=== PATIENT | female | born 1955 | race Caucasian/White ===

== ENCOUNTER → 2017-05-25 | Outpatient (CLI) | payer MEDICARE, OTHER ==
--- NOTE | 2017-05-25 15:40 | MR ---
EXAMINATION TYPE: MR chan wo con DATE OF EXAM: 05/25/2017 COMPARISON: 09/17/2015 HISTORY: Back pain TECHNIQUE: T1 and T2 axial and sagittal images of the lumbar spine are submitted. FINDINGS: There is no abnormal signal seen within the visualized spinal cord or paraspinal soft tissu es. At L1-2 there is there is hypertrophic change of the facets. No disc herniation or canal stenosis. No foraminal encroachment. At L2-3 there is mild degenerative disc disease and more moderate hypertrophic change of the facets a nd ligamentum flavum. Neural foramina are patent. No Canal stenosis. Minimal 1 mm anterior listhesis. At L3-4 there is circumferential disc bulging with more moderate facet arthropathy and ligamentum fla vum hypertrophy. No Canal stenosis. Mild right-sided foraminal encroachment secondary to greater righ t lateral disc bulging and greater right-sided facet arthropathy. At L4-5 there is moderate to severe facet arthropathy and ligament flavum hypertrophy. Circumferentia l disc bulging but no canal stenosis. Neural foramina remain patent At L5-S1 there is Moderate facet arthropathy. No disc herniation or canal stenosis. Neural foramina r emain patent with mild encroachment bilaterally. IMPRESSION: 1. Multilevel degenerative disc disease. There is multilevel facet arthropathy contributing to multil evel foraminal encroachment as discussed above. 2. No discrete herniation or canal stenosis at any of the visualized levels. EXAMINATION TYPE: MR rendon/dustin wo con DATE OF EXAM: 05/25/2017 COMPARISON: 09/17/2015 HISTORY: Pain TECHNIQUE: T1 sagittal and coronal, T2 sagittal, and gradient echo axial views of the cervical spine are submitted. FINDINGS: The cranial cervical junction is preserved. There is no abnormal signal seen within the sp inal cord or paraspinal soft tissues. At C2-3 there is no disc herniation or canal stenosis. Minimal posterior spondylosis. No foraminal en croachment. At C3-4 there is degenerative disc disease. No disc herniation. No foraminal encroachment or canal st enosis. At C4-5 there is 2 mm retrolisthesis of C4 on C5 with moderate degenerative disc disease. Broad-based disc bulging noted with uncovertebral joint hypertrophy bilaterally. Mild bilateral foraminal encroa chment. Moderate effacement of thecal sac and mild central stenosis. Loss of the normal cervical lord osis. At C5-6 there is moderate degenerative disc disease. Osteophytic spurs anteriorly noted. There is pos terior spondylosis and broad-based disc bulging. Uncovertebral joint hypertrophy greater on the right with mild right-sided foraminal encroachment. Mild effacement of thecal sac with borderline stenosi s. At C6-7 there is no disc herniation or canal stenosis. Neural foramina patent. At C7-T1 there is no disc herniation or canal stenosis. Neural foramina patent. IMPRESSION: 1. Stable MRI cervical spine demonstrating multilevel degenerative disc disease with kyphosis at C4- C5. There is a retrolisthesis of C4 on C5 by approximately 2 mm. 2. Multilevel disc bulging and hypertrophic changes resulting in mild spinal stenosis at C4-C5 and dominick rderline stenosis at C5-C6. 3. Multilevel foraminal encroachment.
== END | disposition home or self-care (01) ==
LOC: RADMRIMAIN 14:30
PROVIDERS: ATTEND Psychiatry & Neurology Neurology
DX: M48.02 Spinal stenosis, cervical region (principal); M50.221 Other cervical disc displacement at C4-C5 level; M43.12 Spondylolisthesis, cervical region; M50.321 Other cervical disc degeneration at C4-C5 level; M51.36 Other intervertebral disc degeneration, lumbar region; M46.86 Other specified inflammatory spondylopathies, lumbar region
CPT/HCPCS: 72141; 72148

== ENCOUNTER 2021-04-09 13:12 | Inpatient (IN) | payer MEDICARE, OTHER ==
[2021-04-09] MEDS ORDERED: IPRATROPIUM-ALBUTEROL 3 ML NEB INHALATION STA ×2 (13:45→17:12)
[2021-04-09] MEDS ORDERED: methylPREDNISolone SOD SUCCI 125 MG/2 ML VIAL IV STA (13:45)
--- NOTE | 2021-04-09 13:56 | ED ---
General Adult HPI - General Chief complaint: Shortness of Breath Stated complaint: SOB Time Seen by Provider: 04/09/21 13:16 Source: patient, EMS, RN notes reviewed Mode of arrival: EMS Limitations: no limitations - History of Present Illness Initial comments: Patient is a pleasant [age]-year-old female presenting to the emergency Department with difficulty in breathing. Onset of symptoms was a couple of weeks ago. Symptoms worsened the past couple of days. Patient does have cough however cough seems to is improved. No leg pain or leg swelling. No fevers. 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 - Related Data Home Medications Medication Instructions Recorded Confirmed Albuterol Inhaler [Ventolin Hfa 2 puff INHALATION RT-Q4H PRN 04/09/21 04/09/21 Inhaler] Albuterol Nebulized [Ventolin 2.5 mg INHALATION RT-QID PRN 04/09/21 04/09/21 Nebulized] Atorvastatin [Lipitor] 20 mg PO HS 04/09/21 04/09/21 Budesonide/Formoterol Fumarate 2 puff INHALATION RT-BID 04/09/21 04/09/21 [Symbicort 160-4.5 Mcg Inhaler] Dextroamphetamine/Amphetamine 20 mg PO DAILY 04/09/21 04/09/21 [Adderall Xr] Fluticasone Nasal [place] [Flonase 1 spray EA NOSTRIL DAILY 04/09/21 04/09/21 Nasal Levasy] Furosemide [Lasix] 20 mg PO DAILY PRN 04/09/21 04/09/21 Ipratropium [place] [Ipratropium 2 sprays EA NOSTRIL Q6H PRN 04/09/21 04/09/21 [place] 0.03%] Ipratropium Nebulized [Atrovent 0.5 mg INHALATION RT-QID PRN 04/09/21 04/09/21 Nebulized 0.2 MG/ML] Nystatin [Nystatin Oral Susp] 4 unit PO QID PRN 04/09/21 04/09/21 Omeprazole 40 mg PO DAILY 04/09/21 04/09/21 Ondansetron [Zofran] 4 mg PO Q8H PRN 04/09/21 04/09/21 Sertraline [Zoloft] 200 mg PO DAILY 04/09/21 04/09/21 Zolpidem [Ambien] 5 mg PO HS PRN 04/09/21 04/09/21 lamoTRIgine [LaMICtal] 100 mg PO BID 04/09/21 04/09/21 Allergies Allergy/AdvReac Type Severity Reaction Status Date / Time No Known Allergies Allergy Verified 04/09/21 15:09 Review of Systems ROS Statement: Those systems with pertinent positive or pertinent negative responses have been documented in the HPI. ROS Other: All systems not noted in ROS Statement are negative. Constitutional: Denies: fever Eyes: Denies: eye pain ENT: Denies: ear pain Respiratory: Reports: as per HPI, cough, dyspnea Cardiovascular: Denies: chest pain Endocrine: Reports: fatigue Gastrointestinal: Denies: abdominal pain Genitourinary: Denies: dysuria Musculoskeletal: Denies: back pain Skin: Denies: rash Neurological: Denies: weakness Past Medical History Past Medical History: COPD, Hyperlipidemia History of Any Multi-Drug Resistant Organisms: None Reported Past Surgical History: Section, Cholecystectomy, Orthopedic Surgery Additional Past Surgical History / Comment(s): bladder surgery, Smoking Status: Current every day smoker Past Alcohol Use History: None Reported Past Drug Use History: None Reported General Exam Limitations: no limitations General appearance: alert, in no apparent distress Head exam: Present: normocephalic Eye exam: Present: normal appearance Neck exam: Present: normal inspection Respiratory exam: Present: wheezes, decreased breath sounds Cardiovascular Exam: Present: tachycardia GI/Abdominal exam: Present: soft. Absent: tenderness Extremities exam: Present: normal inspection. Absent: pedal edema, calf tenderness Neurological exam: Present: alert Psychiatric exam: Present: normal affect, normal mood Skin exam: Present: normal color Course Vital Signs 04/09/21 04/09/21 13:18 14:11 Temperature 98.8 F Pulse Rate 112 H Respiratory 28 H 22 Rate Blood Pressure 127/84 O2 Sat by Pulse 94 L Oximetry EKG Findings - EKG Comments: EKG Findings:: Normal sinus rhythm rate 78. SC 160. QRS 90. QT 378. QTC 4:30. Normal axis. Normal QRS. No acute ST change. Medical Decision Making - Medical Decision Making Patient reevaluated without significant change. Patient updated. Dr. Perez has been paged for admission, covering for Dr. Reyna - Lab Data Result diagrams: 04/09/21 13:52 04/09/21 13:52 Lab Results 04/09/21 04/09/21 04/09/21 Range/Units 13:52 13:52 13:52 WBC 4.8 (3.8-10.6) k/uL RBC 4.69 (3.80-5.40) m/uL Hgb 14.1 (11.4-16.0) gm/dL Hct 44.0 (34.0-46.0) % MCV 93.8 (80.0-100.0) fL MCH 30.1 (25.0-35.0) pg MCHC 32.1 (31.0-37.0) g/dL RDW 14.0 (11.5-15.5) % Plt Count 252 (150-450) k/uL MPV 8.8 Neutrophils % 53 % Lymphocytes % 39 % Monocytes % 4 % Eosinophils % 1 % Basophils % 1 % Neutrophils # 2.5 (1.3-7.7) k/uL Lymphocytes # 1.8 (1.0-4.8) k/uL Monocytes # 0.2 (0-1.0) k/uL Eosinophils # 0.0 (0-0.7) k/uL Basophils # 0.0 (0-0.2) k/uL PT 9.8 (9.0-12.0) sec INR 0.9 (<1.2) APTT 25.0 (22.0-30.0) sec Sodium 139 (137-145) mmol/L Potassium 3.9 (3.5-5.1) mmol/L Chloride 101 (98-107) mmol/L Carbon Dioxide 27 (22-30) mmol/L Anion Gap 11 mmol/L BUN 15 (7-17) mg/dL Creatinine 0.84 (0.52-1.04) mg/dL Est GFR (CKD-EPI)AfAm 85 (>60 ml/min/1.73 sqM) Est GFR (CKD-EPI)NonAf 74 (>60 ml/min/1.73 sqM) Glucose 128 H (74-99) mg/dL Plasma Lactic Acid Toni (0.7-2.0) mmol/L Calcium 9.6 (8.4-10.2) mg/dL Total Bilirubin 0.3 (0.2-1.3) mg/dL AST 24 (14-36) U/L ALT 13 (4-34) U/L Alkaline Phosphatase 98 (38-126) U/L Troponin I (0.000-0.034) ng/mL Total Protein 6.5 (6.3-8.2) g/dL Albumin 3.8 (3.5-5.0) g/dL Coronavirus (PCR) (Not Detectd) 04/09/21 04/09/21 04/09/21 Range/Units 13:52 13:52 13:52 WBC (3.8-10.6) k/uL RBC (3.80-5.40) m/uL Hgb (11.4-16.0) gm/dL Hct (34.0-46.0) % MCV (80.0-100.0) fL MCH (25.0-35.0) pg MCHC (31.0-37.0) g/dL RDW (11.5-15.5) % Plt Count (150-450) k/uL MPV Neutrophils % % Lymphocytes % % Monocytes % % Eosinophils % % Basophils % % Neutrophils # (1.3-7.7) k/uL Lymphocytes # (1.0-4.8) k/uL Monocytes # (0-1.0) k/uL Eosinophils # (0-0.7) k/uL Basophils # (0-0.2) k/uL PT (9.0-12.0) sec INR (<1.2) APTT (22.0-30.0) sec Sodium (137-145) mmol/L Potassium (3.5-5.1) mmol/L Chloride (98-107) mmol/L Carbon Dioxide (22-30) mmol/L Anion Gap mmol/L BUN (7-17) mg/dL Creatinine (0.52-1.04) mg/dL Est GFR (CKD-EPI)AfAm (>60 ml/min/1.73 sqM) Est GFR (CKD-EPI)NonAf (>60 ml/min/1.73 sqM) Glucose (74-99) mg/dL Plasma Lactic Acid Toni 1.6 (0.7-2.0) mmol/L Calcium (8.4-10.2) mg/dL Total Bilirubin (0.2-1.3) mg/dL AST (14-36) U/L ALT (4-34) U/L Alkaline Phosphatase (38-126) U/L Troponin I <0.012 (0.000-0.034) ng/mL Total Protein (6.3-8.2) g/dL Albumin (3.5-5.0) g/dL Coronavirus (PCR) Not Detected (Not Detectd) - Radiology Data Radiology results: image reviewed (Chest x-ray shows COPD changes) Disposition Clinical Impression: Acute exacerbation of chronic obstructive pulmonary disease Disposition: ADMITTED IP TO THIS HOSP Is patient prescribed a controlled substance at d/c from ED?: No Referrals: Curtis Reyna MD [Primary Care Provider] - 1-2 days Decision Time: 15:39
[2021-04-09 14:30] LABS: Albumin 3.8 g/dL (3.5-5.0); Calcium 9.6 mg/dL (8.4-10.2); Potassium 3.9 mmol/L (3.5-5.1); Total Bilirubin 0.3 mg/dL (0.2-1.3); Total Protein 6.5 g/dL (6.3-8.2)
[2021-04-09 14:31] LABS: Basophils % (A) 1 %; Eosinophils % (A) 1 %; HGB 14.1 gm/dL (11.4-16.0); Lymphocytes # (A) 1.8 k/uL (1.0-4.8); Lymphocytes % (A) 39 %; MCH 30.1 pg (25.0-35.0); MCHC 32.1 g/dL (31.0-37.0); MCV 93.8 fL (80.0-100.0); Mean Platelet Volume 8.8; Monocytes # (A) 0.2 k/uL (0-1.0); Monocytes % (A) 4 %; Neutrophils # (A) 2.5 k/uL (1.3-7.7); Neutrophils % (A) 53 %; Platelet Count 252 k/uL (150-450); RBC 4.69 m/uL (3.80-5.40); WBC 4.8 k/uL (3.8-10.6)
[2021-04-09 14:51] LABS: INR 0.9 (<1.2); Prothrombin Time 9.8 sec (9.0-12.0)
--- NOTE | 2021-04-09 14:52 | XR ---
EXAMINATION TYPE: XR chest 2V DATE OF EXAM: 04/09/2021 COMPARISON: NONE HISTORY: Short of breath TECHNIQUE: 2 views FINDINGS: There is mild pulmonary hyperinflation. Heart size is normal. There are no hilar masses. Sarai ngs are clear of infiltrate. Bony thorax is intact IMPRESSION: There is probably some COPD. No acute lung disease.
[2021-04-09] MEDS ORDERED: IPRATROPIUM-ALBUTEROL 3 ML NEB INHALATION PRN (15:39)
[2021-04-09] MEDS: IPRATROPIUM-ALBUTEROL 3 ML NEB INHALATION SCH ×2 (18:04→19:51)
[2021-04-09] MEDS: methylPREDNISolone SOD SUCCI 125 MG/2 ML VIAL IV SCH (18:04)
[2021-04-09] MEDS ORDERED: FUROSEMIDE 20 MG TAB PO PRN (21:22)
[2021-04-09] MEDS ORDERED: IPRATROPIUM BROMIDE 0.06% NASAL SPRAY (15 ML) EA NOSTRIL PRN (21:22)
[2021-04-09] MEDS ORDERED: NYSTATIN 100,000 UNIT/ML SUSP 500,000 UNIT/5 ML CUP PO PRN (21:22)
[2021-04-09 21:34] LABS: Glucose,Whole Blood 209 mg/dL (75-99)
[2021-04-09] MEDS: lamoTRIgine 100 MG TAB PO SCH (21:55)
[2021-04-09] MEDS: ATORVASTATIN 20 MG TAB PO SCH (21:55)
[2021-04-09] MEDS: ZOLPIDEM 5 MG TAB PO PRN (21:55)
[2021-04-10] MEDS: methylPREDNISolone SOD SUCCI 125 MG/2 ML VIAL IV SCH ×5 (00:11→23:15)
[2021-04-10 07:34] LABS: Glucose,Whole Blood 126 mg/dL (75-99)
[2021-04-10] MEDS ORDERED: SYMBICORT 160-4.5 MCG INHALER INHALATION SCH (08:00)
[2021-04-10] MEDS: lamoTRIgine 100 MG TAB PO SCH ×2 (08:49→20:45)
[2021-04-10] MEDS: SERTRALINE 100 MG TAB PO SCH (08:49)
[2021-04-10] MEDS: PANTOPRAZOLE 40 MG TABLET PO SCH (08:49)
[2021-04-10] MEDS: INSULIN ASPART (NovoLOG) 100 UNIT/ML VIAL SQ SCH ×4 (08:49→20:45)
[2021-04-10] MEDS: ONDANSETRON 4 MG TAB PO PRN (09:16)
[2021-04-10] MEDS: IPRATROPIUM-ALBUTEROL 3 ML NEB INHALATION SCH ×5 (09:19→21:13)
[2021-04-10] MEDS: FLUTICASONE 50MCG/SPRAY NASAL 16GM EA NOSTRIL SCH (10:32)
[2021-04-10] MEDS: DEXTROAMPHETAMINE PO SCH (11:54)
[2021-04-10] MEDS: AMPHETAMINE PO SCH (11:54)
[2021-04-10 12:48] LABS: Glucose,Whole Blood 140 mg/dL (75-99)
[2021-04-10] MEDS: DOXYCYCLINE 100 MG CAP PO SCH ×2 (16:20→20:45)
[2021-04-10 17:12] LABS: Glucose,Whole Blood 148 mg/dL (75-99)
--- NOTE | 2021-04-10 17:55 | P.HPIM ---
History of Present Illness H&P Date: 04/10/21 Chief Complaint: Short of breath This is a pleasant 65-year-old patient of Dr. Curtis Reyna. Chronic stable medical conditions include insomnia, depression, GERD, ADHD, hyperlipidemia, urinary incontinence, osteoarthritis of the hips and knees. Patient stopped smoking 2 months ago. Has been progressively getting short of breath for a while now more so in the last 2 weeks. Excessive amount of wheezing. Has a cardiac cough mainly white and creamish sputum production. Denies any fever and chills. Poor appetite. Patient did not get the COVID vaccine. Tired rundown. Review of systems: GEN.: Tired decreased appetite EYES: None HEENT: None NECK: None RESPIRATORY: As above CARDIOVASCULAR: None GASTROINTESTINAL: None GENITOURINARY: Urinary incontinence MUSCULOSKELETAL: Joint pains LYMPHATICS: None HEMATOLOGICAL: None PSYCHIATRY: None NEUROLOGICAL: None Past medical history to include: Insomnia, depression, GERD, ADHD, hyperlipidemia, urinary incontinence, osteoarthritis Social history: Lives alone. Smoked a pack a day for close to 46 years stopped 2 months ago. No alcohol Family history: Reviewed, noncontributory to presentation Physical examination: VITAL SIGNS: 98.8, 112, 28, 127/84, 94% on 5 L GENERAL: BMI 26.8, sitting up in bed, short of breath. EYES: Pupils equal. Conjunctiva normal. HEENT: External appearance of nose and ears normal, oral cavity grossly normal. NECK: JVD not raised; masses not palpable. HEART: First and second heart sounds are normal; no edema. LUNGS: Respiratory rate increased, diminished breath sounds prolonged expiration and wheezing. ABDOMEN: Soft, nontender, liver spleen not palpable, no masses palpable. PSYCH: Alert and oriented x3; mood and affect anxiousl. MUSCULAR skeletal: Evidence of OA multiple joints NEUROLOGICAL: Cranial nerves grossly intact; no facial asymmetry, power and sensation grossly intact. LYMPHATICS: No lymph nodes palpable in the axilla and neck INVESTIGATIONS, reviewed in the clinical context: White count 4.8 hemoglobin 14.1 platelets 252 potassium 3.9 BUN 15 creatinine 0.84 Coronavirus [PCR]: Not detected EKG tracing personally reviewed by me-no sinus rhythm rate 73 Chest x-ray film personally reviewed by me-hyperinflated. Tubular lungs. Prominent pulmonary artery Assessment and plan: -Acute severe COPD exacerbation in a recent smoker DuoNeb every 4, nebulized Pulmicort and Perforomist, IV Solu-Medrol -Acute tracheobronchitis Doxycycline 100 mg twice a day -Acute hypoxic respiratory failure from COPD Oxygen 5 L -Chronic insomnia Ambien 5 mg by mouth daily at bedtime when necessary -Anxiety depression Zoloft 100 mg a day -GERD On results 40 mg a day -ADHD Adderall 20 mg a day -Hyperlipidemia Lipitor 20 mg daily at bedtime DuoNeb, nebulized Pulmicort Perforomist, IV Solu-Medrol. Subcu Lovenox. Resume home medications. Care was discussed with the patient. Questions answered. Given the complexity and severity of patient's condition expect the patient to be in the hospital at least for 2 overnights Past Medical History Past Medical History: COPD, Hyperlipidemia History of Any Multi-Drug Resistant Organisms: None Reported Past Surgical History: Section, Cholecystectomy, Orthopedic Surgery Additional Past Surgical History / Comment(s): bladder surgery, carpal tunnel sx; right rotator surgery Past Anesthesia/Blood Transfusion Reactions: No Reported Reaction Past Psychological History: ADD/ADHD, Anxiety, Depression, PTSD Smoking Status: Former smoker Past Alcohol Use History: None Reported Past Drug Use History: Marijuana Medications and Allergies Home Medications Medication Instructions Recorded Confirmed Type Albuterol Inhaler [Ventolin Hfa 2 puff INHALATION RT-Q4H PRN 04/09/21 04/09/21 History Inhaler] Albuterol Nebulized [Ventolin 2.5 mg INHALATION RT-QID PRN 04/09/21 04/09/21 History Nebulized] Atorvastatin [Lipitor] 20 mg PO HS 04/09/21 04/09/21 History Budesonide/Formoterol Fumarate 2 puff INHALATION RT-BID 04/09/21 04/09/21 History [Symbicort 160-4.5 Mcg Inhaler] Dextroamphetamine/Amphetamine 20 mg PO DAILY 04/09/21 04/09/21 History [Adderall Xr] Fluticasone Nasal [place] [Flonase 1 spray EA NOSTRIL DAILY 04/09/21 04/09/21 History Nasal [place]] Furosemide [Lasix] 20 mg PO DAILY PRN 04/09/21 04/09/21 History Ipratropium [place] [Ipratropium 2 sprays EA NOSTRIL Q6H PRN 04/09/21 04/09/21 History [place] 0.03%] Ipratropium Nebulized [Atrovent 0.5 mg INHALATION RT-QID PRN 04/09/21 04/09/21 History Nebulized 0.2 MG/ML] Nystatin [Nystatin Oral Susp] 4 unit PO QID PRN 04/09/21 04/09/21 History Omeprazole 40 mg PO DAILY 04/09/21 04/09/21 History Ondansetron [Zofran] 4 mg PO Q8H PRN 04/09/21 04/09/21 History Sertraline [Zoloft] 200 mg PO DAILY 04/09/21 04/09/21 History Zolpidem [Ambien] 5 mg PO HS PRN 04/09/21 04/09/21 History lamoTRIgine [LaMICtal] 100 mg PO BID 04/09/21 04/09/21 History Allergies Allergy/AdvReac Type Severity Reaction Status Date / Time No Known Allergies Allergy Verified 04/09/21 15:09 Physical Exam Vitals: Vital Signs Temp Pulse Pulse Resp BP BP Pulse Ox 04/10/21 12:34 92 04/10/21 12:22 91 04/10/21 09:32 95 04/10/21 09:19 95 98 04/10/21 04:30 98.4 F 80 20 118/73 98 04/09/21 21:30 97.9 F 99 20 97/52 96 04/09/21 19:51 100 04/09/21 18:12 97.9 F 78 19 104/57 95 04/09/21 17:20 106 H 04/09/21 17:11 106 H 04/09/21 14:11 22 04/09/21 13:18 98.8 F 112 H 28 H 127/84 94 L Intake and Output 04/09/21 04/10/21 04/10/21 22:59 06:59 14:59 Intake Total 100 300 Balance 100 300 Intake: Oral 100 300 Other: Voiding Method Bedside Commode # Voids 1 Weight 73 kg Results CBC & Chem 7: 04/09/21 13:52 04/09/21 13:52 Labs: Abnormal Lab Results - Last 24 Hours (Table) 04/09/21 04/09/21 04/10/21 Range/Units 13:52 21:33 07:32 Glucose 128 H (74-99) mg/dL POC Glucose (mg/dL) 209 H 126 H (75-99) mg/dL Thrombosis Risk Factor Assmnt - Choose All That Apply Any of the Below Risk Factors Present?: Yes Each Factor Represents 1 point: Abnormal pulmonary function (COPD), Obesity (BMI >25) Other Risk Factors: Yes Each Risk Factor Represents 2 Points: Age 61-74 years Other congenital or acquired thrombophilia - If yes, enter type in comment: No Thrombosis Risk Factor Assessment Total Risk Factor Score: 4 Thrombosis Risk Factor Assessment Level: Moderate Risk
[2021-04-10] MEDS ORDERED: LORazepam 0.5 MG TAB PO PRN (17:56)
[2021-04-10] MEDS ORDERED: CALCIUM CARBONATE 500 MG CHEWABLE PO PRN (17:56)
[2021-04-10] MEDS ORDERED: ACETAMINOPHEN TAB 325 MG TAB PO PRN (17:56)
[2021-04-10] MEDS ORDERED: LACTULOSE 20 GM/30 ML CUP PO PRN (17:56)
[2021-04-10] MEDS ORDERED: ONDANSETRON 4 MG/2 ML VIAL IVP PRN (17:56)
[2021-04-10] MEDS ORDERED: NALOXONE 0.4 MG/ML 1 ML VIAL IV PRN (17:56)
[2021-04-10] MEDS: ENOXAPARIN 40 MG/0.4 ML SYRINGE SQ SCH (18:56)
[2021-04-10 20:19] LABS: Glucose,Whole Blood 183 mg/dL (75-99)
[2021-04-10] MEDS: ATORVASTATIN 20 MG TAB PO SCH (20:45)
[2021-04-10] MEDS: BUDESONIDE 1 MG/2 ML NEBU INHALATION SCH (21:13)
[2021-04-10] MEDS: FORMOTEROL FUMARATE 20 MCG/2 ML NEBU INHALATION SCH (21:13)
[2021-04-11] MEDS: IPRATROPIUM-ALBUTEROL 3 ML NEB INHALATION SCH ×6 (01:36→20:30)
[2021-04-11] MEDS: methylPREDNISolone SOD SUCCI 125 MG/2 ML VIAL IV SCH (05:42)
[2021-04-11 07:25] LABS: Glucose,Whole Blood 120 mg/dL (75-99)
[2021-04-11] MEDS: INSULIN ASPART (NovoLOG) 100 UNIT/ML VIAL SQ SCH ×4 (07:35→20:04)
[2021-04-11] MEDS: DEXTROAMPHETAMINE PO SCH (07:50)
[2021-04-11] MEDS: AMPHETAMINE PO SCH (07:50)
[2021-04-11] MEDS: FLUTICASONE 50MCG/SPRAY NASAL 16GM EA NOSTRIL SCH (07:56)
[2021-04-11] MEDS: SERTRALINE 100 MG TAB PO SCH (07:57)
[2021-04-11] MEDS: lamoTRIgine 100 MG TAB PO SCH ×2 (07:57→21:06)
[2021-04-11] MEDS: PANTOPRAZOLE 40 MG TABLET PO SCH (07:57)
[2021-04-11] MEDS: DOXYCYCLINE 100 MG CAP PO SCH ×2 (07:57→21:06)
[2021-04-11] MEDS: ENOXAPARIN 40 MG/0.4 ML SYRINGE SQ SCH (07:57)
[2021-04-11] MEDS: ONDANSETRON 4 MG TAB PO PRN (08:04)
[2021-04-11] MEDS: BUDESONIDE 1 MG/2 ML NEBU INHALATION SCH ×2 (08:45→20:30)
[2021-04-11] MEDS: FORMOTEROL FUMARATE 20 MCG/2 ML NEBU INHALATION SCH ×2 (08:45→20:30)
--- NOTE | 2021-04-11 11:32 | ECHOF ---
Referral Reason:Suspect secondary pulmonary hypertension MEASUREMENTS -------- HEIGHT: 165.1 cm WEIGHT: 72.6 kg BP: 104/60 RVIDd: 3.5 cm (< 3.3) IVSd: 0.8 cm (0.6 - 1.1) LVIDd: 3.8 cm (3.9 - 5.3) LVPWd: 1.1 cm (0.6 - 1.1) IVSs: 1.4 cm LVIDs: 2.2 cm LVPWs: 1.3 cm LAESV Index (A-L): 21.48 ml/m Ao Diam: 3.0 cm (2.0 - 3.7) AV Cusp: 1.9 cm (1.5 - 2.6) LA Diam: 3.6 cm (2.7 - 3.8) MV EXCURSION: 16.865 mm (> 18.000) MV EF SLOPE: 55 mm/s (70 - 150) EPSS: 0.4 cm MV E Js: 0.89 m/s MV DecT: 264 ms MV A Js: 0.87 m/s MV E/A Ratio: 1.02 TAPSE: 23.51 mm FINDINGS -------- Sinus rhythm. This was a technically adequate study. The left ventricular size is normal. Left ventricular wall thickness is normal. Overall left vent ricular systolic function is normal with, an EF between 55 - 60 %. The right ventricle is moderately enlarged. Normal LA size by volume 22+/-6 ml/m2. The right atrial size is normal. Interatrial and interventricular septum intact. There is no evidence of aortic regurgitation. There is no evidence of aortic stenosis. No mitral regurgitation. Mild tricuspid regurgitation present. There is no evidence of pulmonary hypertension. The right v entricular systolic pressure, as measured by Doppler, is {RVSP}. There is no pulmonic regurgitation present. The aortic root size is normal. IVC Not well visulized. There is no pericardial effusion. CONCLUSIONS -------- 1. The left ventricular size is normal. 2. Left ventricular wall thickness is normal. 3. Overall left ventricular systolic function is normal with, an EF between 55 - 60 %. 4. The right ventricle is moderately enlarged. 5. Mild tricuspid regurgitation present. POWER SWITCHBOARD OPERATOR: Alexus Hairston [facility]
[2021-04-11] MEDS: guaiFENesin 600 MG TABLET.ER PO SCH ×3 (12:03→21:06)
[2021-04-11 12:07] LABS: Glucose,Whole Blood 125 mg/dL (75-99)
[2021-04-11] MEDS: methylPREDNISolone SOD SUCCI 40 MG/ML 1 ML VIAL IV SCH ×2 (13:25→21:07)
[2021-04-11 17:29] LABS: Glucose,Whole Blood 141 mg/dL (75-99)
--- NOTE | 2021-04-11 18:04 | P.PN ---
Progress Note - Text Progress Note Date: 04/11/21 Chief Complaint: Short of breath This is a pleasant 65-year-old patient of Dr. Curtis Reyna. Chronic stable medical conditions include insomnia, depression, GERD, ADHD, hyperlipidemia, urinary incontinence, osteoarthritis of the hips and knees. Patient stopped smoking 2 months ago. Has been progressively getting short of breath for a while now more so in the last 2 weeks. Excessive amount of wheezing. Has a cardiac cough mainly white and creamish sputum production. Denies any fever and chills. Poor appetite. Patient did not get the COVID vaccine. Tired rundown. Admitted with acute COPD exacerbation, acute hypoxic respiratory failure, acute tracheal bronchitis. Started on nebulized bronchodilators, steroids, doxycycline oxygen 5 L. April 11: Short of breath. Cough. Wheezing. She did improvement. Intake improving. Oral intake about 50%. Review of systems: Was done for constitutional, cardiovascular, GI, pulmonary. relevant finding as above Active Medications Acetaminophen (Acetaminophen Tab 325 Mg Tab) 650 mg PO Q6HR PRN PRN Reason: Mild Pain or Fever > 100.5 Albuterol/Ipratropium (Ipratropium-Albuterol 3 Ml Neb) 3 ml INHALATION RT-Q4H PRN PRN Reason: Shortness Of Breath Or Wheezing Albuterol/Ipratropium (Ipratropium-Albuterol 3 Ml Neb) 3 ml INHALATION RT-Q4H [facility] Last Admin: 04/11/21 16:25 Dose: Not Given Documented by: Atorvastatin Calcium (Atorvastatin 20 Mg Tab) 20 mg PO HS [facility] Last Admin: 04/10/21 20:45 Dose: 20 mg Documented by: Budesonide (Budesonide 1 Mg/2 Ml Nebu) 1 mg INHALATION RT-BID [facility] Last Admin: 04/11/21 08:45 Dose: 1 mg Documented by: Calcium Carbonate/Glycine (Calcium Carbonate 500 Mg Chewable) 1,000 mg PO Q4HR PRN PRN Reason: Dyspepsia Doxycycline Monohydrate (Doxycycline 100 Mg Cap) 100 mg PO BID [facility] Last Admin: 04/11/21 07:57 Dose: 100 mg Documented by: Enoxaparin Sodium (Enoxaparin 40 Mg/0.4 Ml Syringe) 40 mg SQ DAILY [facility] Last Admin: 04/11/21 07:57 Dose: 40 mg Documented by: Fluticasone Propionate (Fluticasone 50mcg/[place] Nasal 16gm) 1 spray EA NOSTRIL DAILY [facility] Last Admin: 04/11/21 07:56 Dose: 1 spray Documented by: Formoterol Fumarate (Formoterol Fumarate 20 Mcg/2 Ml Nebu) 20 mcg INHALATION RT-BID [facility] Last Admin: 04/11/21 08:45 Dose: 20 mcg Documented by: Furosemide (Furosemide 20 Mg Tab) 20 mg PO DAILY PRN PRN Reason: Edema Guaifenesin (Guaifenesin 600 Mg Tablet.Er) 600 mg PO QID [facility] Last Admin: 04/11/21 17:38 Dose: 600 mg Documented by: Insulin Aspart (Insulin Aspart (Novolog) 100 Unit/Ml Vial) 0 unit SQ ACHS [facility]; Protocol Last Admin: 04/11/21 17:37 Dose: Not Given Documented by: Ipratropium [place] (Ipratropium [place] 0.06% Nasal [place] (15 Ml)) 1 spray EA NOSTRIL Q6H PRN PRN Reason: Congestion Lactulose (Lactulose 20 Gm/30 Ml Cup) 20 gm PO DAILY PRN PRN Reason: Constipation Lamotrigine (Lamotrigine 100 Mg Tab) 100 mg PO BID [facility] Last Admin: 04/11/21 07:57 Dose: 100 mg Documented by: Lorazepam (Lorazepam 0.5 Mg Tab) 0.5 mg PO Q6HR PRN PRN Reason: Anxiety Methylprednisolone Sodium Succinate (Methylprednisolone Sod Succi 40 Mg/Ml 1 Ml Vial) 40 mg IV Q8H [facility] Last Admin: 04/11/21 13:25 Dose: 40 mg Documented by: Naloxone HCl (Naloxone 0.4 Mg/Ml 1 Ml Vial) 0.2 mg IV Q2M PRN PRN Reason: Opioid Reversal Non-Formulary Medication (Dextroamphetamine/Amphetamine [Adderall Xr]) 20 mg PO DAILY [facility] Last Admin: 04/11/21 07:50 Dose: Not Given Documented by: Nystatin (Nystatin 100,000 Unit/Ml Susp 500,000 Unit/5 Ml Cup) 400,000 unit PO QID PRN PRN Reason: YEAST INFECTION Ondansetron HCl (Ondansetron 4 Mg Tab) 4 mg PO Q8H PRN PRN Reason: Nausea Last Admin: 04/11/21 08:04 Dose: 4 mg Documented by: Ondansetron HCl (Ondansetron 4 Mg/2 Ml Vial) 4 mg IVP Q8HR PRN PRN Reason: Nausea And Vomiting Pantoprazole Sodium (Pantoprazole 40 Mg Tablet) 40 mg PO AC-BRKFST [facility] Last Admin: 04/11/21 07:57 Dose: 40 mg Documented by: Sertraline HCl (Sertraline 100 Mg Tab) 200 mg PO DAILY [facility] Last Admin: 04/11/21 07:57 Dose: 200 mg Documented by: Zolpidem Tartrate (Zolpidem 5 Mg Tab) 5 mg PO HS PRN PRN Reason: Insomnia Last Admin: 04/09/21 21:55 Dose: 5 mg Documented by: Past medical history to include: Insomnia, depression, GERD, ADHD, hyperlipidemia, urinary incontinence, osteoarthritis Social history: Lives alone. Smoked a pack a day for close to 46 years stopped 2 months ago. No alcohol Family history: Reviewed, noncontributory to presentation Physical examination: VITAL SIGNS: 98.2, 72, 18, 104/60, 93% on 4 L GENERAL: sitting up in bed, short of breath. EYES: Pupils equal. Conjunctiva normal. NECK: JVD not raised; masses not palpable. HEART: First and second heart sounds are normal; no edema. LUNGS: Respiratory rate increased, diminished breath sounds prolonged expiration and wheezing. ABDOMEN: Soft, nontender, liver spleen not palpable, no masses palpable. PSYCH: Alert and oriented x3; mood and affect anxious. MUSCULAR skeletal: Evidence of OA multiple joints INVESTIGATIONS, reviewed in the clinical context: White count 4.8 hemoglobin 14.1 platelets 252 potassium 3.9 BUN 15 creatinine 0.84 Coronavirus [PCR]: Not detected EKG tracing personally reviewed by me-no sinus rhythm rate 73 Chest x-ray film personally reviewed by me-hyperinflated. Tubular lungs. Prominent pulmonary artery Assessment and plan: -Acute severe COPD exacerbation in a recent smoker: Slow to respond DuoNeb every 4, nebulized Pulmicort and Perforomist, IV Solu-Medrol -Acute tracheobronchitis Doxycycline 100 mg twice a day -Acute hypoxic respiratory failure from COPD: Slow to respond Oxygen 3 L -Chronic insomnia Ambien 5 mg by mouth daily at bedtime when necessary -Anxiety depression Zoloft 100 mg a day -GERD On results 40 mg a day -ADHD Adderall 20 mg a day -Hyperlipidemia Lipitor 20 mg daily at bedtime DuoNeb, nebulized Pulmicort Perforomist, IV Solu-Medrol. Subcu Lovenox. . Care was discussed with the patient. Mucinex added. Encouraged to be out of bed.
[2021-04-11 19:56] LABS: Glucose,Whole Blood 122 mg/dL (75-99)
[2021-04-11] MEDS: ATORVASTATIN 20 MG TAB PO SCH (21:06)
[2021-04-11] MEDS: ZOLPIDEM 5 MG TAB PO PRN (21:12)
[2021-04-12] MEDS: IPRATROPIUM-ALBUTEROL 3 ML NEB INHALATION SCH ×7 (00:25→23:03)
[2021-04-12] MEDS: methylPREDNISolone SOD SUCCI 40 MG/ML 1 ML VIAL IV SCH ×3 (05:01→22:23)
[2021-04-12] MEDS: FORMOTEROL FUMARATE 20 MCG/2 ML NEBU INHALATION SCH ×2 (07:35→19:54)
[2021-04-12] MEDS: BUDESONIDE 1 MG/2 ML NEBU INHALATION SCH ×2 (07:35→19:51)
[2021-04-12 07:38] LABS: Glucose,Whole Blood 114 mg/dL (75-99)
[2021-04-12] MEDS: FLUTICASONE 50MCG/SPRAY NASAL 16GM EA NOSTRIL SCH (08:51)
[2021-04-12] MEDS: ENOXAPARIN 40 MG/0.4 ML SYRINGE SQ SCH (08:51)
[2021-04-12] MEDS: SERTRALINE 100 MG TAB PO SCH (08:52)
[2021-04-12] MEDS: PANTOPRAZOLE 40 MG TABLET PO SCH (08:52)
[2021-04-12] MEDS: lamoTRIgine 100 MG TAB PO SCH ×2 (08:52→22:22)
[2021-04-12] MEDS: guaiFENesin 600 MG TABLET.ER PO SCH ×4 (08:52→22:22)
[2021-04-12] MEDS: INSULIN ASPART (NovoLOG) 100 UNIT/ML VIAL SQ SCH ×4 (08:55→22:23)
[2021-04-12] MEDS: AMPHETAMINE PO SCH (08:55)
[2021-04-12] MEDS: DEXTROAMPHETAMINE PO SCH (08:55)
[2021-04-12] MEDS: DOXYCYCLINE 100 MG CAP PO SCH ×2 (10:04→22:22)
[2021-04-12 12:47] LABS: Glucose,Whole Blood 108 mg/dL (75-99)
[2021-04-12 17:57] LABS: Glucose,Whole Blood 130 mg/dL (75-99)
--- NOTE | 2021-04-12 19:44 | P.PN ---
Progress Note - Text Progress Note Date: 04/12/21 Chief Complaint: Short of breath This is a pleasant 65-year-old patient of Dr. Curtis Reyna. Chronic stable medical conditions include insomnia, depression, GERD, ADHD, hyperlipidemia, urinary incontinence, osteoarthritis of the hips and knees. Patient stopped smoking 2 months ago. Has been progressively getting short of breath for a while now more so in the last 2 weeks. Excessive amount of wheezing. Has a cardiac cough mainly white and creamish sputum production. Denies any fever and chills. Poor appetite. Patient did not get the COVID vaccine. Tired rundown. Admitted with acute COPD exacerbation, acute hypoxic respiratory failure, acute tracheal bronchitis. Started on nebulized bronchodilators, steroids, doxycycline oxygen 5 L. April 11: Short of breath. Cough. Wheezing. She did improvement. Intake improving. Oral intake about 50%. April 12: Still short of breath and some wheezing some cough. Tired. Eating better. Have the patient set up in a chair. Increase activity. Review of systems: Was done for constitutional, cardiovascular, GI, pulmonary. relevant finding as above Active Medications Acetaminophen (Acetaminophen Tab 325 Mg Tab) 650 mg PO Q6HR PRN PRN Reason: Mild Pain or Fever > 100.5 Albuterol/Ipratropium (Ipratropium-Albuterol 3 Ml Neb) 3 ml INHALATION RT-Q4H PRN PRN Reason: Shortness Of Breath Or Wheezing Albuterol/Ipratropium (Ipratropium-Albuterol 3 Ml Neb) 3 ml INHALATION RT-Q4H [facility] Last Admin: 04/12/21 15:50 Dose: 3 ml Documented by: Atorvastatin Calcium (Atorvastatin 20 Mg Tab) 20 mg PO HS [facility] Last Admin: 04/11/21 21:06 Dose: 20 mg Documented by: Budesonide (Budesonide 1 Mg/2 Ml Nebu) 1 mg INHALATION RT-BID [facility] Last Admin: 04/12/21 07:35 Dose: 1 mg Documented by: Calcium Carbonate/Glycine (Calcium Carbonate 500 Mg Chewable) 1,000 mg PO Q4HR PRN PRN Reason: Dyspepsia Doxycycline Monohydrate (Doxycycline 100 Mg Cap) 100 mg PO BID [facility] Last Admin: 04/12/21 10:04 Dose: 100 mg Documented by: Enoxaparin Sodium (Enoxaparin 40 Mg/0.4 Ml Syringe) 40 mg SQ DAILY [facility] Last Admin: 04/12/21 08:51 Dose: 40 mg Documented by: Fluticasone Propionate (Fluticasone 50mcg/[place] Nasal 16gm) 1 spray EA NOSTRIL DAILY [facility] Last Admin: 04/12/21 08:51 Dose: 1 spray Documented by: Formoterol Fumarate (Formoterol Fumarate 20 Mcg/2 Ml Nebu) 20 mcg INHALATION RT-BID [facility] Last Admin: 04/12/21 07:35 Dose: 20 mcg Documented by: Furosemide (Furosemide 20 Mg Tab) 20 mg PO DAILY PRN PRN Reason: Edema Last Admin: 04/12/21 08:52 Dose: 20 mg Documented by: Guaifenesin (Guaifenesin 600 Mg Tablet.Er) 600 mg PO QID [facility] Last Admin: 04/12/21 17:05 Dose: 600 mg Documented by: Insulin Aspart (Insulin Aspart (Novolog) 100 Unit/Ml Vial) 0 unit SQ [facility]; Protocol Last Admin: 04/12/21 17:59 Dose: Not Given Documented by: Ipratropium [place] (Ipratropium [place] 0.06% Nasal [place] (15 Ml)) 1 spray EA NOSTRIL Q6H PRN PRN Reason: Congestion Lactulose (Lactulose 20 Gm/30 Ml Cup) 20 gm PO DAILY PRN PRN Reason: Constipation Lamotrigine (Lamotrigine 100 Mg Tab) 100 mg PO BID [facility] Last Admin: 04/12/21 08:52 Dose: 100 mg Documented by: Lorazepam (Lorazepam 0.5 Mg Tab) 0.5 mg PO Q6HR PRN PRN Reason: Anxiety Methylprednisolone Sodium Succinate (Methylprednisolone Sod Succi 40 Mg/Ml 1 Ml Vial) 40 mg IV Q8H [facility] Last Admin: 04/12/21 13:13 Dose: 40 mg Documented by: Naloxone HCl (Naloxone 0.4 Mg/Ml 1 Ml Vial) 0.2 mg IV Q2M PRN PRN Reason: Opioid Reversal Non-Formulary Medication (Dextroamphetamine/Amphetamine [Adderall Xr]) 20 mg PO DAILY [facility] Last Admin: 04/12/21 08:55 Dose: Not Given Documented by: Nystatin (Nystatin 100,000 Unit/Ml Susp 500,000 Unit/5 Ml Cup) 400,000 unit PO QID PRN PRN Reason: YEAST INFECTION Ondansetron HCl (Ondansetron 4 Mg Tab) 4 mg PO Q8H PRN PRN Reason: Nausea Last Admin: 04/11/21 08:04 Dose: 4 mg Documented by: Ondansetron HCl (Ondansetron 4 Mg/2 Ml Vial) 4 mg IVP Q8HR PRN PRN Reason: Nausea And Vomiting Pantoprazole Sodium (Pantoprazole 40 Mg Tablet) 40 mg PO AC-BRKFST [facility] Last Admin: 04/12/21 08:52 Dose: 40 mg Documented by: Sertraline HCl (Sertraline 100 Mg Tab) 200 mg PO DAILY [facility] Last Admin: 04/12/21 08:52 Dose: 200 mg Documented by: Zolpidem Tartrate (Zolpidem 5 Mg Tab) 5 mg PO HS PRN PRN Reason: Insomnia Last Admin: 04/11/21 21:12 Dose: 5 mg Documented by: Past medical history to include: Insomnia, depression, GERD, ADHD, hyperlipidemia, urinary incontinence, osteoarthritis Social history: Lives alone. Smoked a pack a day for close to 46 years stopped 2 months ago. No alcohol Family history: Reviewed, noncontributory to presentation Physical examination: VITAL SIGNS: 98.2, 72, 18, 104/60, 93% on 4 L GENERAL: sitting up in bed, short of breath. EYES: Pupils equal. Conjunctiva normal. NECK: JVD not raised; masses not palpable. HEART: First and second heart sounds are normal; no edema. LUNGS: Respiratory rate increased, diminished breath sounds prolonged expiration and wheezing. ABDOMEN: Soft, nontender, liver spleen not palpable, no masses palpable. PSYCH: Alert and oriented x3; mood and affect anxious. MUSCULAR skeletal: Evidence of OA multiple joints INVESTIGATIONS, reviewed in the clinical context: White count 4.8 hemoglobin 14.1 platelets 252 potassium 3.9 BUN 15 creatinine 0.84 Coronavirus [PCR]: Not detected EKG tracing personally reviewed by me-no sinus rhythm rate 73 Chest x-ray film personally reviewed by me-hyperinflated. Tubular lungs. Prominent pulmonary artery Assessment and plan: -Acute severe COPD exacerbation in a recent smoker: Slow to respond DuoNeb every 4, nebulized Pulmicort and Perforomist, IV Solu-Medrol -Acute tracheobronchitis Doxycycline 100 mg twice a day -Acute hypoxic respiratory failure from COPD: Slow to respond Oxygen 3 L -Chronic insomnia Ambien 5 mg by mouth daily at bedtime when necessary -Anxiety depression Zoloft 100 mg a day -GERD On results 40 mg a day -ADHD Adderall 20 mg a day -Hyperlipidemia Lipitor 20 mg daily at bedtime DuoNeb, nebulized Pulmicort Perforomist, IV Solu-Medrol. Subcu Lovenox. . Discussed with the patient. I expect the patient to be in the hospital for another 24-48 hours.
[2021-04-12 21:19] LABS: Glucose,Whole Blood 158 mg/dL (75-99)
[2021-04-12] MEDS: ATORVASTATIN 20 MG TAB PO SCH (22:22)
[2021-04-12] MEDS: ZOLPIDEM 5 MG TAB PO PRN (22:25)
[2021-04-13] MEDS: IPRATROPIUM-ALBUTEROL 3 ML NEB INHALATION SCH ×6 (02:40→23:11)
[2021-04-13] MEDS: methylPREDNISolone SOD SUCCI 40 MG/ML 1 ML VIAL IV SCH ×3 (06:02→21:44)
[2021-04-13 07:27] LABS: Glucose,Whole Blood 108 mg/dL (75-99)
[2021-04-13] MEDS: INSULIN ASPART (NovoLOG) 100 UNIT/ML VIAL SQ SCH ×4 (07:40→21:44)
[2021-04-13] MEDS: AMPHETAMINE PO SCH (07:49)
[2021-04-13] MEDS: DEXTROAMPHETAMINE PO SCH (07:49)
[2021-04-13] MEDS: BUDESONIDE 1 MG/2 ML NEBU INHALATION SCH ×2 (07:52→19:49)
[2021-04-13] MEDS: FORMOTEROL FUMARATE 20 MCG/2 ML NEBU INHALATION SCH ×2 (07:52→19:49)
[2021-04-13] MEDS: PANTOPRAZOLE 40 MG TABLET PO SCH (08:24)
[2021-04-13] MEDS: guaiFENesin 600 MG TABLET.ER PO SCH ×3 (08:24→21:43)
[2021-04-13] MEDS: SERTRALINE 100 MG TAB PO SCH (08:24)
[2021-04-13] MEDS: lamoTRIgine 100 MG TAB PO SCH ×2 (08:24→21:44)
[2021-04-13] MEDS: ENOXAPARIN 40 MG/0.4 ML SYRINGE SQ SCH (08:24)
[2021-04-13] MEDS: DOXYCYCLINE 100 MG CAP PO SCH ×2 (08:25→21:43)
[2021-04-13] MEDS: FLUTICASONE 50MCG/SPRAY NASAL 16GM EA NOSTRIL SCH (08:26)
[2021-04-13] MEDS: ONDANSETRON 4 MG TAB PO PRN (08:28)
[2021-04-13 11:44] LABS: Glucose,Whole Blood 119 mg/dL (75-99)
--- NOTE | 2021-04-13 16:20 | P.PN ---
Progress Note - Text Progress Note Date: 04/13/21 Chief Complaint: Short of breath This is a pleasant 65-year-old patient of Dr. Curtis Reyna. Chronic stable medical conditions include insomnia, depression, GERD, ADHD, hyperlipidemia, urinary incontinence, osteoarthritis of the hips and knees. Patient stopped smoking 2 months ago. Has been progressively getting short of breath for a while now more so in the last 2 weeks. Excessive amount of wheezing. Has a cardiac cough mainly white and creamish sputum production. Denies any fever and chills. Poor appetite. Patient did not get the COVID vaccine. Tired rundown. Admitted with acute COPD exacerbation, acute hypoxic respiratory failure, acute tracheal bronchitis. Started on nebulized bronchodilators, steroids, doxycycline oxygen 5 L. April 11: Short of breath. Cough. Wheezing. She did improvement. Intake improving. Oral intake about 50%. April 12: Still short of breath and some wheezing some cough. Tired. Eating better. Have the patient set up in a chair. Increase activity. April 13: Short of breath. Wheezing. Slight improvement. Eating okay. On 3 L nasal cannula. After the bathroom. Review of systems: Was done for constitutional, cardiovascular, GI, pulmonary. relevant finding as above Active Medications Acetaminophen (Acetaminophen Tab 325 Mg Tab) 650 mg PO Q6HR PRN PRN Reason: Mild Pain or Fever > 100.5 Albuterol/Ipratropium (Ipratropium-Albuterol 3 Ml Neb) 3 ml INHALATION RT-Q4H PRN PRN Reason: Shortness Of Breath Or Wheezing Albuterol/Ipratropium (Ipratropium-Albuterol 3 Ml Neb) 3 ml INHALATION RT-Q4H [facility] Last Admin: 04/13/21 16:09 Dose: 3 ml Documented by: Atorvastatin Calcium (Atorvastatin 20 Mg Tab) 20 mg PO HS [facility] Last Admin: 04/12/21 22:22 Dose: 20 mg Documented by: Budesonide (Budesonide 1 Mg/2 Ml Nebu) 1 mg INHALATION RT-BID [facility] Last Admin: 04/13/21 07:52 Dose: 1 mg Documented by: Calcium Carbonate/Glycine (Calcium Carbonate 500 Mg Chewable) 1,000 mg PO Q4HR PRN PRN Reason: Dyspepsia Doxycycline Monohydrate (Doxycycline 100 Mg Cap) 100 mg PO BID [facility] Last Admin: 04/13/21 08:25 Dose: 100 mg Documented by: Enoxaparin Sodium (Enoxaparin 40 Mg/0.4 Ml Syringe) 40 mg SQ DAILY [facility] Last Admin: 04/13/21 08:24 Dose: 40 mg Documented by: Fluticasone Propionate (Fluticasone 50mcg/[place] Nasal 16gm) 1 spray EA NOSTRIL DAILY [facility] Last Admin: 04/13/21 08:26 Dose: 1 spray Documented by: Formoterol Fumarate (Formoterol Fumarate 20 Mcg/2 Ml Nebu) 20 mcg INHALATION RT-BID [facility] Last Admin: 04/13/21 07:52 Dose: 20 mcg Documented by: Furosemide (Furosemide 20 Mg Tab) 20 mg PO DAILY PRN PRN Reason: Edema Last Admin: 04/12/21 08:52 Dose: 20 mg Documented by: Guaifenesin (Guaifenesin 600 Mg Tablet.Er) 600 mg PO QID [facility] Last Admin: 04/13/21 14:02 Dose: 600 mg Documented by: Insulin Aspart (Insulin Aspart (Novolog) 100 Unit/Ml Vial) 0 unit SQ [facility]; Protocol Last Admin: 04/13/21 11:56 Dose: Not Given Documented by: Ipratropium [place] (Ipratropium [place] 0.06% Nasal [place] (15 Ml)) 1 spray EA NOSTRIL Q6H PRN PRN Reason: Congestion Lactulose (Lactulose 20 Gm/30 Ml Cup) 20 gm PO DAILY PRN PRN Reason: Constipation Lamotrigine (Lamotrigine 100 Mg Tab) 100 mg PO BID [facility] Last Admin: 04/13/21 08:24 Dose: 100 mg Documented by: Lorazepam (Lorazepam 0.5 Mg Tab) 0.5 mg PO Q6HR PRN PRN Reason: Anxiety Methylprednisolone Sodium Succinate (Methylprednisolone Sod [place] 40 Mg/Ml 1 Ml Vial) 40 mg IV Q8H [facility] Last Admin: 04/13/21 14:02 Dose: 40 mg Documented by: Naloxone HCl (Naloxone 0.4 Mg/Ml 1 Ml Vial) 0.2 mg IV Q2M PRN PRN Reason: Opioid Reversal Non-Formulary Medication (Dextroamphetamine/Amphetamine [Adderall Xr]) 20 mg PO DAILY [facility] Last Admin: 04/13/21 07:49 Dose: Not Given Documented by: Nystatin (Nystatin 100,000 Unit/Ml Susp 500,000 Unit/5 Ml Cup) 400,000 unit PO QID PRN PRN Reason: YEAST INFECTION Ondansetron HCl (Ondansetron 4 Mg Tab) 4 mg PO Q8H PRN PRN Reason: Nausea Last Admin: 04/13/21 08:28 Dose: 4 mg Documented by: Ondansetron HCl (Ondansetron 4 Mg/2 Ml Vial) 4 mg IVP Q8HR PRN PRN Reason: Nausea And Vomiting Pantoprazole Sodium (Pantoprazole 40 Mg Tablet) 40 mg PO AC-BRKFST [facility] Last Admin: 04/13/21 08:24 Dose: 40 mg Documented by: Sertraline HCl (Sertraline 100 Mg Tab) 200 mg PO DAILY [facility] Last Admin: 04/13/21 08:24 Dose: 200 mg Documented by: Zolpidem Tartrate (Zolpidem 5 Mg Tab) 5 mg PO HS PRN PRN Reason: Insomnia Last Admin: 04/12/21 22:25 Dose: 5 mg Documented by: Past medical history to include: Insomnia, depression, GERD, ADHD, hyperlipidemia, urinary incontinence, osteoarthritis Social history: Lives alone. Smoked a pack a day for close to 46 years stopped 2 months ago. No alcohol Family history: Reviewed, noncontributory to presentation Physical examination: VITAL SIGNS: 98.3, 74, 20, 100/51, 96% on 3 L GENERAL: sitting up in bed, less short of breath. EYES: Pupils equal. Conjunctiva normal. NECK: JVD not raised; masses not palpable. HEART: First and second heart sounds are normal; no edema. LUNGS: Respiratory rate increased, diminished breath sounds prolonged expiration and wheezing. ABDOMEN: Soft, nontender, liver spleen not palpable, no masses palpable. PSYCH: Alert and oriented x3; mood and affect anxious. MUSCULAR skeletal: Evidence of OA multiple joints INVESTIGATIONS, reviewed in the clinical context: White count 4.8 hemoglobin 14.1 platelets 252 potassium 3.9 BUN 15 creatinine 0.84 Coronavirus [PCR]: Not detected EKG tracing personally reviewed by me-no sinus rhythm rate 73 Chest x-ray film personally reviewed by me-hyperinflated. Tubular lungs. Prominent pulmonary artery Assessment and plan: -Acute severe COPD exacerbation in a recent smoker: Slow to respond DuoNeb every 4, nebulized Pulmicort and Perforomist, IV Solu-Medrol -Acute tracheobronchitis Doxycycline 100 mg twice a day -Acute hypoxic respiratory failure from COPD: Slow to respond Oxygen 3 L -Chronic insomnia Ambien 5 mg by mouth daily at bedtime when necessary -Anxiety depression Zoloft 100 mg a day -GERD On results 40 mg a day -ADHD Adderall 20 mg a day -Hyperlipidemia Lipitor 20 mg daily at bedtime DuoNeb, nebulized Pulmicort [place]. Subcu Lovenox. . Discussed with the patient. Up in a chair.
[2021-04-13 16:59] LABS: Glucose,Whole Blood 127 mg/dL (75-99)
[2021-04-13 21:14] LABS: Glucose,Whole Blood 149 mg/dL (75-99)
[2021-04-13] MEDS: ATORVASTATIN 20 MG TAB PO SCH (21:43)
[2021-04-13] MEDS: ZOLPIDEM 5 MG TAB PO PRN (21:44)
[2021-04-14] MEDS: guaiFENesin 600 MG TABLET.ER PO SCH ×2 (02:13→08:16)
[2021-04-14] MEDS: IPRATROPIUM-ALBUTEROL 3 ML NEB INHALATION SCH ×3 (03:07→11:52)
[2021-04-14] MEDS: methylPREDNISolone SOD SUCCI 40 MG/ML 1 ML VIAL IV SCH (05:41)
[2021-04-14 07:18] LABS: Glucose,Whole Blood 101 mg/dL (75-99)
[2021-04-14] MEDS: BUDESONIDE 1 MG/2 ML NEBU INHALATION SCH (08:07)
[2021-04-14] MEDS: FORMOTEROL FUMARATE 20 MCG/2 ML NEBU INHALATION SCH (08:07)
[2021-04-14] MEDS: PANTOPRAZOLE 40 MG TABLET PO SCH (08:16)
[2021-04-14] MEDS: ENOXAPARIN 40 MG/0.4 ML SYRINGE SQ SCH (08:16)
[2021-04-14] MEDS: SERTRALINE 100 MG TAB PO SCH (08:16)
[2021-04-14] MEDS: lamoTRIgine 100 MG TAB PO SCH (08:16)
[2021-04-14] MEDS: DOXYCYCLINE 100 MG CAP PO SCH (08:16)
[2021-04-14] MEDS: AMPHETAMINE PO SCH (08:17)
[2021-04-14] MEDS: DEXTROAMPHETAMINE PO SCH (08:17)
[2021-04-14] MEDS: FLUTICASONE 50MCG/SPRAY NASAL 16GM EA NOSTRIL SCH (08:17)
[2021-04-14] MEDS: INSULIN ASPART (NovoLOG) 100 UNIT/ML VIAL SQ SCH (08:17)
[2021-04-14 11:50] VITALS: BP 150/74; RESP 18; TEMP 98.4
[2021-04-14 12:00] VITALS: PULSE 68
--- NOTE | 2021-04-15 19:24 | P.DS ---
Providers Date of admission: 04/09/21 15:40 Expected date of discharge: 04/14/21 Attending physician: Avery Perez Primary care physician: Curtis Reyna [facility] Course: Chief Complaint: Short of breath This is a pleasant 65-year-old patient of Dr. Curtis Reyna. Chronic stable medical conditions include insomnia, depression, GERD, ADHD, hyperlipidemia, urinary incontinence, osteoarthritis of the hips and knees. Patient stopped smoking 2 months ago. Has been progressively getting short of breath for a while now more so in the last 2 weeks. Excessive amount of wheezing. Has a cardiac cough mainly white and creamish sputum production. Denies any fever and chills. Poor appetite. Patient did not get the COVID vaccine. Tired rundown. Admitted with acute COPD exacerbation, acute hypoxic respiratory failure, acute tracheal bronchitis. Started on nebulized bronchodilators, steroids, doxycycline oxygen 5 L. April 14: Breathing better. Feeling better oral intake fair. Care was discussed with the patient. Discharged on doxycycline and prednisone taper. Past medical history to include: Insomnia, depression, GERD, ADHD, hyperlipidemia, urinary incontinence, osteoarthritis Social history: Lives alone. Smoked a pack a day for close to 46 years stopped 2 months ago. No alcohol Family history: Reviewed, noncontributory to presentation Physical examination: VITAL SIGNS: 98.4, 66, 18, 150/74, 90% GENERAL: sitting up in bed, comfortable EYES: Pupils equal. Conjunctiva normal. NECK: JVD not raised; masses not palpable. HEART: First and second heart sounds are normal; no edema. LUNGS: Respiratory rate normal, diminished breath sounds ABDOMEN: Soft, nontender, liver spleen not palpable, no masses palpable. PSYCH: Alert and oriented x3; mood and affect anxious. MUSCULAR skeletal: Evidence of OA multiple joints INVESTIGATIONS, reviewed in the clinical context: White count 4.8 hemoglobin 14.1 platelets 252 potassium 3.9 BUN 15 creatinine 0.84 Coronavirus [PCR]: Not detected EKG tracing personally reviewed by me-no sinus rhythm rate 73 Chest x-ray film personally reviewed by me-hyperinflated. Tubular lungs. Prominent pulmonary artery Assessment and plan: -Acute severe COPD exacerbation in a recent smoker: Improved DuoNeb every 4, nebulized Pulmicort and Perforomist, IV Solu-Medrol DC on prednisone taper -Acute tracheobronchitis Doxycycline 100 mg twice a day, continue for 3 more days -Acute hypoxic respiratory failure from COPD: Better Oxygen 3 L -Chronic insomnia Ambien 5 mg by mouth daily at bedtime when necessary -Anxiety depression Zoloft 100 mg a day -GERD On results 40 mg a day -ADHD Adderall 20 mg a day -Hyperlipidemia Lipitor 20 mg daily at bedtime Disposition: Home Plan - Discharge Summary Discharge Rx Participant: Yes New Discharge Prescriptions: New guaiFENesin [Mucinex] 600 mg PO QID #60 tablet predniSONE 10 mg PO DAILY #30 tab Doxycycline [Vibramycin] 100 mg PO BID #6 cap Continue Albuterol Inhaler [Ventolin Hfa Inhaler] 2 puff INHALATION RT-Q4H PRN PRN Reason: Shortness Of Breath Zolpidem [Ambien] 5 mg PO HS PRN PRN Reason: Insomnia Sertraline [Zoloft] 200 mg PO DAILY Budesonide/Formoterol Fumarate [Symbicort 160-4.5 Mcg Inhaler] 2 puff INHALATION RT-BID Furosemide [Lasix] 20 mg PO DAILY PRN PRN Reason: Edema Dextroamphetamine/Amphetamine [Adderall Xr] 20 mg PO DAILY Albuterol Nebulized [Ventolin Nebulized] 2.5 mg INHALATION RT-QID PRN PRN Reason: Shortness Of Breath Ondansetron [Zofran] 4 mg PO Q8H PRN PRN Reason: Nausea Omeprazole 40 mg PO DAILY lamoTRIgine [LaMICtal] 100 mg PO BID Nystatin [Nystatin Oral Susp] 4 unit PO QID PRN PRN Reason: YEAST INFECTION Ipratropium Nebulized [Atrovent Nebulized 0.2 MG/ML] 0.5 mg INHALATION RT-QID PRN PRN Reason: Shortness Of Breath Ipratropium [place] [Ipratropium [place] 0.03%] 2 sprays EA NOSTRIL Q6H PRN PRN Reason: Congestion Fluticasone Nasal [place] [Flonase Nasal [place]] 1 spray EA NOSTRIL DAILY Atorvastatin [Lipitor] 20 mg PO HS Discharge Medication List Albuterol Inhaler [Ventolin Hfa Inhaler] 2 puff INHALATION RT-Q4H PRN 04/09/21 [History] Albuterol Nebulized [Ventolin Nebulized] 2.5 mg INHALATION RT-QID PRN 04/09/21 [History] Atorvastatin [Lipitor] 20 mg PO HS 04/09/21 [History] Budesonide/Formoterol Fumarate [Symbicort 160-4.5 Mcg Inhaler] 2 puff INHALATION RT-BID 04/09/21 [History] Dextroamphetamine/Amphetamine [Adderall Xr] 20 mg PO DAILY 04/09/21 [History] Fluticasone Nasal [place] [Flonase Nasal [place]] 1 spray EA NOSTRIL DAILY 04/09/21 [History] Furosemide [Lasix] 20 mg PO DAILY PRN 04/09/21 [History] Ipratropium [place] [Ipratropium [place] 0.03%] 2 sprays EA NOSTRIL Q6H PRN 04/09/21 [History] Ipratropium Nebulized [Atrovent Nebulized 0.2 MG/ML] 0.5 mg INHALATION RT-QID PRN 04/09/21 [History] Nystatin [Nystatin Oral Susp] 4 unit PO QID PRN 04/09/21 [History] Omeprazole 40 mg PO DAILY 04/09/21 [History] Ondansetron [Zofran] 4 mg PO Q8H PRN 04/09/21 [History] Sertraline [Zoloft] 200 mg PO DAILY 04/09/21 [History] Zolpidem [Ambien] 5 mg PO HS PRN 04/09/21 [History] lamoTRIgine [LaMICtal] 100 mg PO BID 04/09/21 [History] Doxycycline [Vibramycin] 100 mg PO BID #6 cap 04/14/21 [Rx] guaiFENesin [Mucinex] 600 mg PO QID #60 tablet 04/14/21 [Rx] predniSONE 10 mg PO DAILY #30 tab 04/14/21 [Rx] Follow up Appointment(s)/Referral(s): Curtis Reyna MD [Primary Care Provider] - 04/21/21 4:30 pm Patient Instructions/Handouts: Doxycycline (By mouth), Prednisone (By mouth), Guaifenesin (By mouth), COPD (Chronic Obstructive Pulmonary Disease) (DC) Activity/Diet/Wound Care/Special Instructions: 3 liters of fio2 on dc Discharge Disposition: HOME SELF-CARE
== END 2021-04-14 12:10 | disposition home or self-care (01) | DRG 190 ==
LOC: EC 13:12 → 5NMEDONC 15:40
PROVIDERS: ADMIT Hospitalist; ATTEND Hospitalist
DX: J44.1 Chronic obstructive pulmonary disease with (acute) exacerbation (principal); J96.01 Acute respiratory failure with hypoxia; E78.5 Hyperlipidemia, unspecified; F17.200 Nicotine dependence, unspecified, uncomplicated; F41.8 Other specified anxiety disorders; Z20.822 Contact with and (suspected) exposure to COVID-19; F43.10 Post-traumatic stress disorder, unspecified; F51.04 Psychophysiologic insomnia; F90.9 Attention-deficit hyperactivity disorder, unspecified type; J20.9 Acute bronchitis, unspecified; K21.9 Gastro-esophageal reflux disease without esophagitis; M16.0 Bilateral primary osteoarthritis of hip; M17.0 Bilateral primary osteoarthritis of knee; R32 Unspecified urinary incontinence; Z79.51 Long term (current) use of inhaled steroids; Z79.899 Other long term (current) drug therapy
CPT/HCPCS: 36415; 71046; 80053; 83605; 84484; 85025; 85610; 85730; 87635; 93005; 93306; 94640; 94760; 96374; 99285